=== PATIENT | female | born 1940 | race Caucasian/White ===

== ENCOUNTER 2017-12-01 06:51 | Day surgery (SDC) | payer MEDICARE, OTHER ==
[~2017-12-01] VITALS: Ht 154.9 cm; Wt 45.5 kg
[~2017-12-01 06:51] MED LIST: ALEN70TA48 PO; CARB1TAB14 PO; CITA20TA9 PO; DIGO125T71 PO; FENO135C4 PO; FERR-89 PO; METO-558 PO; NITR0.4T SL; QUET25TA PO; RAMI10CA23 PO; SIMV40TA5 PO; VITAD1000 PO; WARF3TAB59 PO
[2017-12-01] MEDS ORDERED: PROPOFOL 1% 20 ML VIAL IVP ONE (06:52)
[2017-12-01] MEDS ORDERED: SODIUM CHLORIDE 0.9% 1,000 ML IV ONE ×2 (07:30→07:34)
[2017-12-01 10:08] LABS: GLUCOMETER DEV NAME(LOC) SDS 5; GLUCOSE,POINT OF CARE 84 MG/DL (70-110)
[2017-12-01] MEDS ORDERED: APIX5TAB PO (10:54)
[2017-12-01] MEDS ORDERED: SITA50 PO (10:54)
== END 2017-12-01 11:15 | disposition home or self-care (01) ==
LOC: SURGERY 06:51
PROVIDERS: ATTEND Internal Medicine Gastroenterology
DX: K63.5 Polyp of colon (principal); K57.30 Diverticulosis of large intestine without perforation or abscess without bleeding; K64.8 Other hemorrhoids; I11.9 Hypertensive heart disease without heart failure; I48.91 Unspecified atrial fibrillation; G20 Parkinson's disease; E11.9 Type 2 diabetes mellitus without complications; Z79.4 Long term (current) use of insulin; Z79.01 Long term (current) use of anticoagulants; Z90.710 Acquired absence of both cervix and uterus; Z95.2 Presence of prosthetic heart valve; Z95.0 Presence of cardiac pacemaker; Z88.6 Allergy status to analgesic agent; Z79.899 Other long term (current) drug therapy
CPT/HCPCS: 45385; 82962; 88305; 88313; C1769; J2704; J7030